=== PATIENT | male | born 1985 | race Caucasian/White ===

== ENCOUNTER → 2016-08-13 08:32 | Outpatient (CLI) | payer BC ==
[2014-11-15 08:57] VITALS: BMI 40.2
[~2016-08-13 08:32] MED LIST: HYDROCODONE-APA1 TAB PO; ZANTAC150 MG PO
--- NOTE | 2016-08-13 10:44 | NUR ---
Nutrition education for pre/post op bariatric surgery: S: Pt reports he has been heavy since he was 4 years old. Pts fathers side of the family are all obese. Pt reports he lost 100# in a year after starting on [place] and a low CHO diet. Lowest adult weight has been 230#; pt then gained ~50# and was able to maintain this weight for 6-7 years (280#). Pt stopped smoking and ultimately gained up to 334#. Pt reports he knows he eats to much and too fast at meals. Pt also is skipping breakfast every day. 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 Pt reports he is trying to start a walking program ~5 days a week. Pt eats most meals at home; may eat out on the weekends. Pt is drinking a lot of diet sodas. Pt has started packing his lunch instead of eating fast food. O: 30 year old male Dx: GERD, morbid obestiy PMH: GERD Ht: 5'10" Wt: 334# IBW: 166# +/-10% BMI: 47.9 A: Reviewed pre/post op diet progression. Reviewed sample menus of all phases of diet progression. Discussed dumping syndrome; 1/2 cup meal size; no straws or carbonated beverages; vitamin, mineral supplements for life; pouch stretching; no alcohol; no sweets; water for hydration; no drinking during meals. Pt with good understanding of information provided. Discussed homework to begin now. Pt states he has to lose 34# (10% of body weight) before insurance will approve him for surgery. Pt is ready to make the necessary changes to be successful with bariatric surgery. P: Provided pt with printed diet information and RDN name and phone number. RDN will be available if needed. Thank you for the consult.
== END | disposition home or self-care (01) ==
LOC: D.FANS 08:32
DX: Z01.818 Encounter for other preprocedural examination (principal)

== ENCOUNTER 2020-04-16 14:29 | Emergency (ER) | payer BC ==
[~2020-04-16] VITALS: Ht 177.8 cm; Wt 144.1 kg
[2020-04-16 14:59] VITALS: BP 144/81; Ht 177.8 cm; Wt 144.1 kg
[2020-04-16] MEDS ORDERED: LEXAPRO5 MG PO (15:01)
== END 2020-04-16 19:37 | disposition home or self-care (01) ==
LOC: D.ER 14:29
DX: S29.012A Strain of muscle and tendon of back wall of thorax, initial encounter (principal); V89.2XXA Person injured in unspecified motor-vehicle accident, traffic, initial encounter; Y93.9 Activity, unspecified; Y92.9 Unspecified place or not applicable; M54.5 Low back pain